=== PATIENT | male | born 1995 | race Caucasian/White ===

== ENCOUNTER 2024-11-02 16:06 | Observation (INO) | payer OTHER ==
[2024-11-02] MEDS: LORazepam 2 MG/ML SDV VIAL IVPUSH ONE (16:30)
[2024-11-02 17:20] LABS: ABSOLUTE IMMATURE GRANULOCYTES 0.01 x10^3/uL (0.0-0.031); BASOPHILS # 0.02 x10^3/uL (0.01-0.08); EOSINOPHIL % 2.9 % (0.8-7.0); EOSINOPHILS # 0.15 x10^3/uL (0.04-0.54); MCHC 33.6 g/dl (32.3-36.5); MEAN CELL VOLUME 88.8 fl (79.0-92.2); MEAN PLT VOLUME 9.6 fl (9.4-12.4); MONOCYTE # 0.45 x10^3/uL (0.30-0.82); MONOCYTE % 8.8 % (5.3-12.2); RDW 12.3 % (11.9-15.3)
[2024-11-02 17:30] LABS: INR 1.02 (0.83-1.09); PROTHROMBIN TIME (PATIENT) 11.1 SEC (9.7-13.0)
[2024-11-02 17:33] LABS: ACTIVATED PTT 28.8 SECONDS (25.2-36.5)
[2024-11-02] MEDS: SODIUM CHLORIDE 0.9% 500 ML INFUS.BAG IV ONE (17:45)
[2024-11-02 18:20] LABS: CO2 25 mmol/L (21-32); GLUCOSE,RANDOM 95 mg/dL (74-106)
[2024-11-02] MEDS: LORazepam 2 MG/ML SDV VIAL IM ONE (18:20)
[2024-11-02 18:23] LABS: CREATININE 1.3 mg/dL (0.55-1.3); SGOT/AST 18 U/L (15-37); SGPT/ALT 23 U/L (13-61)
[2024-11-02 18:25] LABS: TOT PROT 7.2 g/dl (6.4-8.2)
[2024-11-02 18:26] LABS: ALK PHOS 76 U/L (45-117)
[2024-11-02 18:40] LABS: HCV DIAGNOSTIC IN-HOUSE W/RFLX NON-REACTIVE (NONREACTIVE); HIV INTERPRETATION NEGATIVE (NEGATIVE)
[2024-11-02] MEDS ORDERED: MAGNESIUM SULFATE IN WATER 2 GM/50 ML IVPB IVPB ONE (18:54)
[2024-11-02] MEDS: MAGNESIUM SULFATE IN WATER 2 GM/50 ML IVPB IVPB ONE (18:58)
[2024-11-02 19:10] LABS: URINE APPEARANCE CLEAR; URINE BILIRUBIN NEGATIVE (NEGATIVE); URINE COLOR YELLOW; URINE GLUCOSE (UA) NEGATIVE (NEGATIVE); URINE KETONE NEGATIVE (NEGATIVE); URINE LEUK ESTERASE NEGATIVE (NEGATIVE); URINE NITRITE NEGATIVE (NEGATIVE); URINE PROTEIN NEGATIVE (NEGATIVE); URINE UROBILINOGEN 0.2 mg/dL (0.2-1.0)
[2024-11-02 19:20] LABS: PHENCYCLIDINE,URINE NEGATIVE (NEGATIVE)
[2024-11-02 19:21] LABS: URINE BARBITURATES NEGATIVE (NEGATIVE)
[2024-11-02 19:28] LABS: OPIATES, URI NEGATIVE (NEGATIVE)
[2024-11-02 20:02] LABS: COCAINE, UR NEGATIVE (NEGATIVE); URINE AMPHETAMINES NEGATIVE (NEGATIVE); URINE BENZODIAZEPINES NEGATIVE (NEGATIVE)
[2024-11-02 20:03] LABS: METHADONE, UR NEGATIVE (NEGATIVE)
[2024-11-03 02:16] VITALS: RESP 18; BMI 21.4
[2024-11-03 08:42] LABS: MCHC 33.4 g/dl (32.3-36.5); MEAN CELL VOLUME 89.8 fl (79.0-92.2); MEAN PLT VOLUME 9.9 fl (9.4-12.4); RDW 12.4 % (11.9-15.3)
[2024-11-03 09:29] LABS: CREATININE 1.1 mg/dL (0.55-1.3); GLUCOSE,RANDOM 84.0 mg/dL (74-106)
[2024-11-03] MEDS: SERTRALINE HCL 25 MG TABLET (FP) PO SCH (09:30)
[2024-11-03 09:31] LABS: TOT PROT 6.9 g/dl (6.4-8.2)
[2024-11-03 09:32] LABS: ALK PHOS 74.0 U/L (45-117); CO2 26.0 mmol/L (21-32)
[2024-11-03 09:33] LABS: SGOT/AST 15.0 U/L (15-37); SGPT/ALT 21.0 U/L (13-61)
[2024-11-03] MEDS ORDERED: LORazepam 4 MG/1 ML VIAL IVPUSH ONE (13:45)
[2024-11-03 16:50] VITALS: BP 110/66; PULSE 65; TEMP 97.8
== END 2024-11-03 18:15 | disposition home or self-care (01) ==
LOC: JER 16:06 → INTOOBSV 19:50 → JERBED 19:50 → J5S 11-03 00:56
PROVIDERS: ADMIT Student in an Organized Health Care Education/Training Program; ATTEND Student in an Organized Health Care Education/Training Program
PROC: 3E033NZ Introduction of Analgesics, Hypnotics, Sedatives into Peripheral Vein, Percutaneous Approach (ICD-10-PCS; principal; 2024-11-02)
PROC: 3E033GC Introduction of Other Therapeutic Substance into Peripheral Vein, Percutaneous Approach (ICD-10-PCS; 2024-11-02)
PROC: 3E0337Z Introduction of Electrolytic and Water Balance Substance into Peripheral Vein, Percutaneous Approach (ICD-10-PCS; 2024-11-02)
DX: R56.9 Unspecified convulsions (principal); F41.9 Anxiety disorder, unspecified; E83.42 Hypomagnesemia; F43.10 Post-traumatic stress disorder, unspecified; Q87.40 Marfan syndrome, unspecified; H54.8 Legal blindness, as defined in USA; F45.8 Other somatoform disorders; Z88.8 Allergy status to other drugs, medicaments and biological substances
CPT/HCPCS: 36415; 70450-TC; 71045-TC-FY; 72125-TC; 80053; 80307; 81003; 82962; 83605; 83735; 84100; 84484; 85025; 85027; 85610; 85730; 86803; 87086; 87389; 93005; 93010; 96365; 96375; 97116-GP; 97162-GP; 99285-25; G0378

== ENCOUNTER 2024-11-24 14:06 | Observation (INO) | payer OTHER ==
[2024-11-24 14:54] LABS: MCHC 33.5 g/dl (32.3-36.5); MEAN CELL VOLUME 89.7 fl (79.0-92.2); MEAN PLT VOLUME 9.7 fl (9.4-12.4); RDW 11.9 % (11.9-15.3)
[2024-11-24 15:25] LABS: CO2 29 mmol/L (21-32); GLUCOSE,RANDOM 93 mg/dL (74-106)
[2024-11-24 15:28] LABS: CREATININE 1.5 mg/dL (0.55-1.3); SGOT/AST 15 U/L (15-37); SGPT/ALT 23 U/L (13-61)
[2024-11-24 15:29] LABS: TOT PROT 7.6 g/dl (6.4-8.2)
[2024-11-24 15:31] LABS: ALK PHOS 74 U/L (45-117)
[2024-11-24 16:24] LABS: HCV DIAGNOSTIC IN-HOUSE W/RFLX NON-REACTIVE (NONREACTIVE)
[2024-11-24 16:25] LABS: HIV INTERPRETATION NEGATIVE (NEGATIVE)
[2024-11-24] MEDS: LACTATED RINGERS SOLUTION 1000 ML INFUS.BAG IV ONE (16:27)
[2024-11-24] MEDS ORDERED: ONDANSETRON 4 MG/2 ML VIAL IVPUSH PRN (20:57)
[2024-11-24] MEDS: ACETAMINOPHEN 325 MG TABLET (FP) PO PRN (23:49)
[2024-11-25 01:03] VITALS: BMI 21.7
[2024-11-25] MEDS: SODIUM CHLORIDE 1,000 ML IV SCH (02:32)
[2024-11-25 08:37] LABS: MCHC 32.4 g/dl (32.3-36.5); MEAN CELL VOLUME 92.2 fl (79.0-92.2); MEAN PLT VOLUME 10.0 fl (9.4-12.4); RDW 12.1 % (11.9-15.3)
[2024-11-25 09:19] LABS: CO2 31.0 mmol/L (21-32); GLUCOSE,RANDOM 92.0 mg/dL (74-106)
[2024-11-25 09:22] LABS: CREATININE 1.3 mg/dL (0.55-1.3); SGOT/AST 13.0 U/L (15-37); SGPT/ALT 18.0 U/L (13-61)
[2024-11-25 09:23] LABS: TOT PROT 6.6 g/dl (6.4-8.2)
[2024-11-25 09:24] LABS: ALK PHOS 67.0 U/L (45-117)
[2024-11-25] MEDS: ENOXAPARIN NA (PORCINE) 40 MG/0.4 ML DISP.SYRIN SQ SCH (11:49)
[2024-11-25] MEDS: SERTRALINE HCL 25 MG TABLET (FP) PO SCH (11:49)
[2024-11-25] MEDS: ACETAMINOPHEN 1000 MG/100 ML BAG IVPB PRN (15:47)
[2024-11-25] MEDS: MAGNESIUM SULFATE IN WATER 2 GM/50 ML IVPB IVPB ONE (17:27)
[2024-11-26 10:28] LABS: MCHC 32.7 g/dl (32.3-36.5); MEAN CELL VOLUME 90.8 fl (79.0-92.2); MEAN PLT VOLUME 10.1 fl (9.4-12.4); RDW 12.1 % (11.9-15.3)
[2024-11-26 10:59] LABS: CO2 32.0 mmol/L (21-32)
[2024-11-26 11:00] LABS: GLUCOSE,RANDOM 73.0 mg/dL (74-106)
[2024-11-26 11:03] LABS: CREATININE 1.2 mg/dL (0.55-1.3)
[2024-11-26 13:53] VITALS: BP 122/71; PULSE 65; RESP 20; TEMP 97.3
== END 2024-11-26 17:26 | disposition home or self-care (01) ==
LOC: JER 14:06 → JERBED 18:05 → J6W TELE 20:50
PROVIDERS: ADMIT Hospitalist; ATTEND Internal Medicine
PROC: 3E033GC Introduction of Other Therapeutic Substance into Peripheral Vein, Percutaneous Approach (ICD-10-PCS; principal; 2024-11-24)
DX: F44.5 Conversion disorder with seizures or convulsions (principal); Q87.40 Marfan syndrome, unspecified; F43.10 Post-traumatic stress disorder, unspecified; F41.9 Anxiety disorder, unspecified; R07.9 Chest pain, unspecified; M79.602 Pain in left arm; M62.81 Muscle weakness (generalized); Z88.8 Allergy status to other drugs, medicaments and biological substances
CPT/HCPCS: 36415; 70450-TC; 70551-TC; 71275-TC; 72125-TC; 74174-TC; 80048; 80053; 80307; 82550; 82553; 82962; 83735; 84443; 84484; 85027; 86803; 87389; 93005; 93010; 96361; 96365; 99285-25; G0378; Q9967